=== PATIENT | male | born 2000 ===

== ENCOUNTER 2022-10-03 15:53 | Emergency (ER) | payer SELFPAY ==
[2022-10-03] MEDS ORDERED: Diphtheria,Pertussis(Acell),Tetanus Vaccine 0.5 ML Syringe IM ONE (18:43)
[2022-10-03] MEDS ORDERED: Lidocaine 1% PF 2 ML SDV INJECT ONE (18:43)
== END 2022-10-03 19:15 | disposition home or self-care (01) ==
LOC: MW.ED 15:53
DX: S61.219A Laceration without foreign body of unspecified finger without damage to nail, initial encounter (principal); Z23 Encounter for immunization; W26.8XXA Contact with other sharp object(s), not elsewhere classified, initial encounter; Y99.0 Civilian activity done for income or pay
CPT/HCPCS: 12001; 90471; 90715; 99282-25; 99283; J3490